=== PATIENT | female | born 1990 | race Caucasian/White ===

== ENCOUNTER 2018-12-30 08:14 | Inpatient (IN) | payer OTHER ==
--- NOTE | 2018-12-29 20:20 | PDOC.LDHP ---
Labor and Delivery H&P Chief complaint: scheduled induction HPI: 28 yo @ 39w4d by LMP, admit for elective IOL. Antepartum course uncomplicated. Current gestational age (weeks): 39 Due date: 01/01/19 Dating criteria: last menstrual period Grav: 2 Para: 1 OB History Details: 1 term Current complications: none Abnormal US findings: No Past Medical History: Denies Current medications: pre- vitamins Previous surgical history: none Allergies/Adverse Reactions: Allergies Allergy/AdvReac Type Severity Reaction Status Date / Time Penicillins Allergy Severe Verified 12/30/18 08:35 meperidine [From Demerol] Allergy Mild Emesis Verified 12/30/18 08:35 Social history: none - Physical Exam Vital signs reviewed and normal: yes General: NAD Heart: RRR Lungs: nonlabored breathing Abdomen: gravid Extremeties: no edema FHT: category 1 (130s, mod johnathon, +accels, no decels) [employer] contractions every: q4-5 min - Vaginal Exam cm dilated: 3 (cephalic; AROM clear fluid ) Effacement: 50% Station: -2 - OB Labs Blood type: A RH: positive Antibody Screen: negative HIV: negative RPR: negative HEPSAg: negative 1 hour GCT: negative Urine drug screen: negative Rubella: immune - Assessment 39w5d IUP Elective IOL - Plan Plan: admit to L&D, informed consent obtained, anesthesia consult for pain management -: Start pitocin
[2018-12-30] MEDS ORDERED: Promethazine HCl 25 MG/ML VIAL IM PRN ×2 (08:34→14:42)
[2018-12-30] MEDS ORDERED: Carboprost 250 MCG/ML AMP IM PRN (08:34)
[2018-12-30] MEDS ORDERED: Butorphanol Tartrate 1 MG/ML VIAL SLOW IVP PRN (08:34)
[2018-12-30] MEDS ORDERED: Diphenoxylate HCl/Atropine Tablet PO PRN (08:34)
[2018-12-30] MEDS ORDERED: Methylergonovine 0.2 MG/ML VIAL IM PRN ×2 (08:34→17:50)
[2018-12-30] MEDS ORDERED: Ibuprofen 800 MG TAB PO PRN (08:34)
[2018-12-30] MEDS ORDERED: NS w/ Oxytocin 10 units 500 ML IV SCH (08:34)
[2018-12-30] MEDS ORDERED: Misoprostol 200 MCG TAB PR PRN (08:34)
[2018-12-30] MEDS ORDERED: Lidocaine 1% (PF) 30 ML VIAL SC PRN (08:34)
[2018-12-30] MEDS ORDERED: HYDROcodone/Acetaminophen 5/325 mg Tablet PO PRN ×2 (08:34→17:50)
[2018-12-30] MEDS ORDERED: Ondansetron PF 4 MG/2 ML Vial IVP PRN ×2 (08:34→14:42)
[2018-12-30] MEDS ORDERED: Acetaminophen 500 MG TAB PO PRN (08:34)
[2018-12-30] MEDS ORDERED: NS / Oxytocin 40 units/1000ml 1,000 ML IV PRN (08:34)
[2018-12-30] MEDS ORDERED: NS w/ Oxytocin 10 units 500 ML ONE (08:48)
[2018-12-30] MEDS: Lactated Ringer's 1,000 ML IV SCH ×4 (08:50→15:17)
[2018-12-30 09:09] VITALS: BMI 35.2
[2018-12-30 09:14] LABS: Hemoglobin 12.9 g/dL (12.0-16.0); Mean Corpuscular HGB CONC 32.7 g/dL (32.0-36.0); Mean Corpuscular Hemoglobin 28.2 pg (27.0-31.0); Mean Corpuscular Volume 86.3 fL (78.0-98.0); Mean Platelet Volume 9.4 fL (7.4-10.4); Platelet Count 229 thou/uL (130-400); RBC Distribution Width 13.8 % (11.5-14.5); Red Blood Cell (RBC) Count 4.57 mill/uL (4.20-5.40); White Blood Cell (WBC) Count 8.2 thou/uL (4.8-10.8)
[2018-12-30 09:58] LABS: Syphilis Antibody Nonreactive (Nonreactive); Syphilis Antibody Index 0.25 S/CO (<1.00 Non-Reactive)
[2018-12-30 09:59] LABS: HIV (1/2) Antibody/Antigen Non-Reactive (NonReactive); Hep B Surf Ag Non-Reactive S/CO (NonReactive)
[2018-12-30] MEDS ORDERED: Fentanyl 4 mcg/Bup 0.1% Cadd 100 ML ONE (10:40)
[2018-12-30] MEDS ORDERED: Lidocaine 2% 10 ML INJ ONE (10:40)
[2018-12-30] MEDS ORDERED: Lidocaine 2% MPF 10 ML AMP (For Epidural Use) ONE (11:11)
[2018-12-30] MEDS ORDERED: diphenhydrAMINE 50 MG/ML VIAL IVP PRN (14:42)
[2018-12-30] MEDS ORDERED: Acetaminophen 325 MG TAB PO PRN (14:42)
[2018-12-30] MEDS ORDERED: Eucerin (Mineral Oil/Petrolatum,White) 30 gm Jar TOP PRN (14:42)
[2018-12-30] MEDS ORDERED: ePHEDrine/0.9% NaCl/PF SYRINGE 50 mg/10 ml SLOW IVP PRN (14:42)
[2018-12-30] MEDS ORDERED: Naloxone HCl 0.4 mg/ml Vial IVP PRN ×2 (14:42)
[2018-12-30] MEDS ORDERED: Lactated Ringer's 500 ML IV PRN (14:42)
[2018-12-30] MEDS ORDERED: Communication Order-Pharmacy FS SCH (14:45)
[2018-12-30] MEDS ORDERED: Fentanyl 4 mcg/Bupivacaine 0.1% Cassette 100 ML EPIDURAL SCH (14:45)
--- NOTE | 2018-12-30 17:27 | PDOC.OPDEL ---
OB Operative/Delivery Note Delivery Dr/Surgeon: Ariana Angulo DO Pre-Delivery Diagnosis: elective induction Procedure/Post Delivery Dx: spontaneous vaginal delivery Weeks gestation: 39 Anesthesia: epidural - Findings A Sex: female - 1 min: 8 - 5 min: 9 - Additional Findings/Plan Placenta delivered: spontaneous Repaired Obstetrical Laceration: 1st degree (and small right periuretheral) Estimated blood loss: QBL 175 cc Compilations/Other Findings: Infant in cephalic presentation and PA position. Normal appearing placenta. Post delivery plan: routine recovery
[2018-12-30] MEDS ORDERED: Benzocaine-Menthol 82.5 ML CAN TOP PRN (17:50)
[2018-12-30] MEDS ORDERED: Misoprostol 200 MCG TAB VAG PRN (17:50)
[2018-12-30] MEDS ORDERED: Bisacodyl 10 MG SUPP PR PRN (17:50)
[2018-12-30] MEDS ORDERED: Milk Of Magnesia 30 ML UDCUP PO PRN (17:50)
[2018-12-30] MEDS ORDERED: NS / Oxytocin 40 units/1000ml 1,000 ML IV SCH (18:30)
[2018-12-30] MEDS: Ibuprofen 800 MG TAB PO SCH (21:38)
[2018-12-30] MEDS: Docusate Calcium (SURFAK) 240 MG CAP PO SCH (21:38)
[2018-12-31] MEDS: Ibuprofen 800 MG TAB PO SCH ×3 (05:44→20:19)
--- NOTE | 2018-12-31 08:12 | PDOC.PP ---
Post Progress Note Post Day #: 1 Subjective: No concerns. Breast feeding. Minimal lochia and pain. Voiding. PO intake tolerated: yes Flatus: yes Ambulation: yes Vital Signs (12 hours) Temp Pulse Resp BP Pulse Ox 12/31/18 07:38 97.9 F 68 20 103/62 99 12/31/18 05:00 97.8 F 63 18 100/58 L 12/31/18 00:55 98.2 F 59 L 18 99/59 L 12/30/18 21:15 98.1 F 72 18 126/69 Weight Weight 225 lb - Physical Examination General: NAD Cardiovascular: RRR Respiratory: non-labored breathing Abdominal: no distention, appropriately TTP Fundus firm & at: below umbilicus Extremities: negative homans (B) Neurological: no gross focal deficits Psychiatric: A&Ox3, normal affect Result Diagrams: 12/30/18 08:38 Additional Labs: Post Labs Blood Type A POSITIVE 12/30/18 08:38 Hep Bs Antigen Non-Reactive S/CO (NonReactive) 12/30/18 08:38 (1) Vaginal delivery Code(s): O80 - ENCOUNTER FOR FULL-TERM UNCOMPLICATED DELIVERY Status: Acute - Assessment/Plan PPD1 VSSAF Meeting requirements for d/c. Plan for d/c home this PM with F/u 6 weeks PP
[2018-12-31] MEDS: Docusate Calcium (SURFAK) 240 MG CAP PO SCH ×2 (08:51→20:19)
[2018-12-31 09:10] LABS: Hemoglobin 11.5 g/dL (12.0-16.0); Mean Corpuscular HGB CONC 32.7 g/dL (32.0-36.0); Mean Corpuscular Hemoglobin 29.2 pg (27.0-31.0); Mean Corpuscular Volume 89.5 fL (78.0-98.0); Mean Platelet Volume 8.7 fL (7.4-10.4); Platelet Count 170 thou/uL (130-400); Red Blood Cell (RBC) Count 3.92 mill/uL (4.20-5.40); White Blood Cell (WBC) Count 9.4 thou/uL (4.8-10.8)
[2018-12-31 17:40] VITALS: BP 110/55; TEMP 98
== END 2018-12-31 20:30 | disposition home or self-care (01) | DRG 807 ==
LOC: L&D 08:14 → 3SW 20:25 → EDSTATUS 01-01 15:00
PROVIDERS: ADMIT Obstetrics & Gynecology; ATTEND Obstetrics & Gynecology
PROC: 10E0XZZ Delivery of Products of Conception, External Approach (ICD-10-PCS; principal; 2018-12-30)
PROC: 0UQMXZZ Repair Vulva, External Approach (ICD-10-PCS; 2018-12-30)
DX: O71.82 Other specified trauma to perineum and vulva (principal); Z37.0 Single live birth; Z3A.39 39 weeks gestation of pregnancy
CPT/HCPCS: 36415; 51702; 85027; 86780; 86850; 86900; 86901; 87340; 87389; J2001; J2405